=== PATIENT | female | born 1980 | race American Indian/Alaskan Native ===

== ENCOUNTER 2018-02-05 07:18 | Inpatient (IN) | payer MEDICAID ==
[2018-02-05] MEDS ORDERED: BRETHINE SUB-Q PRN (08:00)
[2018-02-05] MEDS ORDERED: XYLOCAINE 2% INFILTRATI NR (08:00)
[2018-02-05] MEDS ORDERED: ZOFRAN IV PRN (08:00)
[2018-02-05] MEDS ORDERED: MINERAL OIL PO PRN (08:00)
[2018-02-05] MEDS ORDERED: SUBLIMAZE IV PRN (08:00)
[2018-02-05] MEDS ORDERED: PITOCin/NS 20 UNIT/1000ML DRIP 20 UNITS/1,000 ML BAG IV SCH (08:00)
[2018-02-05] MEDS ORDERED: BRETHINE IVP PRN (08:00)
[2018-02-05] MEDS ORDERED: XYLOCAINE MPF 2% INFILTRATI NR (08:00)
--- NOTE | 2018-02-05 08:08 | Ultrasound Report ---
ULTRASOUND OB LIMITED History: rupture of membranes Technique: Transabdominal ultrasound with Doppler interrogation. Gestation: Single Position: Cephalic Amniotic Fluid: Decreased ROBERT = 3.7 cm Heart Rate: 145 BPM
--- NOTE | 2018-02-05 08:11 | History and Physical Report ---
History of Present Illness Date of examination: 02/05/18 (pt presents with PPROM @ 0630 this AM) Date of admission: 02/05/18 07:21 History of present illness: Past History : 8 Term Births: 1 Premature Births: 6 Living Children: 7 Para: 7 Mult. Births: 0 Prev : 0 Aborta: 0 Elect. Ab: 0 Spont. Ab: 0 Ectopics: 0 # 1 Delivery date: 05/27/1996 Weeks Gestation: 35 labor: yes Delivery type: Hours of labor: 6 Anesthesia type: epidural Delivery location: [facility] Sex: Male weight: [id number] Name: Dannie # 2 Delivery date: 07/21/1997 Weeks Gestation: ?32 labor: yes Delivery type: Hours of labor: 5 Anesthesia type: none Delivery location: [facility] Sex: Male weight: 5lbs 0oz Name: Duke # 3 Delivery date: 10/26/1998 Weeks Gestation: 36 labor: yes Delivery type: Hours of labor: 10 Anesthesia type: epidural Delivery location: [facility] Infant Sex: Male weight: 6lbs 1oz Name: Tai Comments: None # 4 Delivery date: 07/11/2003 Weeks Gestation: 33 labor: yes Delivery type: Hours of labor: 6 Anesthesia type: IV Delivery location: [facility] Sex: Male weight: [id number] Name: Valentin # 5 Delivery date: 03/12/2005 Weeks Gestation: 35 Delivery type: Hours of labor: 9 Anesthesia type: IV Delivery location: [facility] Infant Sex: Male weight: 5lbs 13oz Name: Jose # 6 Delivery date: 12/22/2009 Weeks Gestation: 37 labor: no Delivery type: Hours of labor: 5 Anesthesia type: epidural Delivery location: [facility] Infant Sex: Female weight: 6-3 Name: Lilliana Comments: HTN # 7 Delivery date: 12/29/2015 Weeks Gestation: 36 labor: yes Delivery type: Hours of labor: 5 Anesthesia type: epidural Delivery location: [place] Sex: Female weight: 5-8 Name: Kenzie Past Medical History: Asthma Hypothyroidism (2009) Umbilical hernia TIA (04/2017) Past Surgical History: Reviewed history from 05/16/2009 and no changes required: Negative Past Surgical History Family History Summary: Mother (biol.) - Has Family History of Diabetes - Entered On: 07/08/2017 Mother (biol.) - Has Family History of CVA or Stroke - Entered On: 07/08/2017 Mother (biol.) - Has Family History of Coronary Heart Disease - Entered On: 2017 General Comments - FH: Family History Breast Cancer Family History of Hypertension No Family History of Cervical Cancer No Family History of Colon Cancer No Family History of DVT/PE on OCP Social History: none Patient is Risk Factors: Smoked Tobacco Use: Never smoker Drug use: no Alcohol use: no Past History - Obstetrical History Expected Date of Delivery: 03/07/18 Actual Gestation: 35 Week(s) 5 Day(s) : 8 Para: 7 Hx # Term Pregnancies: 1 Number of Pregnancies: 6 Spontaneous Abortions: 0 Induced : 0 Number of Living Children: 7 Medications and Allergies Allergies Allergy/AdvReac Type Severity Reaction Status Date / Time aspirin Allergy Itching Verified 01/22/18 17:39 latex Allergy Rash Verified 01/22/18 17:39 Home Medications Medication Instructions Recorded Confirmed Last Taken Type Albuterol Sulfate [Ventolin Hfa] 2 puff INHALATION PRN 01/22/18 02/05/18 16:00 History Budesonide [Pulmicort Flexhaler] 1 inhalation IH PRN 01/22/18 02/05/18 02/04/18 16:00 History Labetalol HCl 400 mg PO TID 01/22/18 02/05/18 02/05/18 06:00 History Levothyroxine [Synthroid] 150 mcg PO QAM 01/22/18 02/05/18 02/05/18 05:00 History Vit-Fe Fumar-FA [ 1 tab PO QDAY 01/22/18 02/05/18 02/04/18 14: 00 History Vitamin] Active Meds: Active Medications Ephedrine Sulfate (Ephedrine Sulfate) 10 mg IV Q2M PRN PRN Reason: Hypotension Fentanyl (Sublimaze) 100 mcg IV Q2H PRN PRN Reason: Labor Pain Ampicillin Sodium (Polycillin/Ns 2 Gm/100 Ml) 2 gm in 100 mls @ 100 mls/hr IV ONCE ONE; Protocol Stop: 02/05/18 09:29 Ampicillin Sodium (Ampicillin/Ns 1 Gm/50 Ml) 1 gm in 50 mls @ 100 mls/hr IV Q4H LEXA; Protocol Lactated Ringer's (Lactated Ringers) 1,000 mls @ 125 mls/hr IV DIRECT LEXA Oxytocin/Sodium Chloride (Pitocin/Ns 20 Unit/1000ml Drip) 20 units in 1,000 mls @ 125 mls/hr IV DIRECT LEXA Magnesium Sulfate (Magnesium Sulfate 40gm/1000ml) 40 gm in 1,000 mls @ 50 mls/ hr IV DIRECT LEXA Magnesium Sulfate (Magnesium Sulfate 4gm/100ml) 4 gm in 100 mls @ 300 mls/hr IV ONCE ONE Stop: 02/05/18 08:28 Oxytocin/Sodium Chloride (Pitocin/Ns 30 Unit/500ml) 30 units in 500 mls @ 4 mls /hr IV Q30MIN LEXA; Protocol Lidocaine HCl (Xylocaine Mpf 2%) 5 ml INFILTRATI ONCE NR Stop: 02/06/18 07:59 Mineral Oil (Mineral Oil) 30 ml PO QHS PRN PRN Reason: Constipation Ondansetron HCl (Zofran) 4 mg IV Q8H PRN PRN Reason: Nausea And Vomiting Terbutaline Sulfate (Brethine) 0.25 mg SUB-Q ONCE PRN PRN Reason: Hyperstimulation/Hypertonicity Terbutaline Sulfate (Brethine) 0.25 mg IVP ONCE PRN PRN Reason: Hyperstimulation/Hypertonicity - Vital Signs Vital signs: Vital Signs Temp Pulse Resp BP 98.5 F 106 H 20 185/110 02/05/18 07:34 02/05/18 07:34 02/05/18 07:34 02/05/18 07:34 Temp Pulse Resp BP Pulse Ox 98.5 F 94 H 20 194/93 96 02/05/18 07:34 02/05/18 08:11 02/05/18 07:34 02/05/18 08:07 02/05/18 08:11 - Physical Exam Breasts: Positive: deferred Cardiovascular: Regular rate, Normal S1, Normal S2 Lungs: Positive: Clear to auscultation, Normal air movement Abdomen: Positive: normal appearance, soft, normal bowel sounds. Negative: distention, tenderness Genitourinary (Female): Positive: normal external genitalia, normal perenium Vulva: both: normal Vagina: Positive: normal moisture. Negative: discharge Cervix: Negative: lesion, discharge Uterus: Positive: normal size, normal contour Adnexa: both: normal Anus/Rectum: Positive: normal perianal skin, heme negative. Negative: rectal mass, hemorrhoids Extremities: Positive: edema Deep Tendon Reflex Grade: Normal +2 - Obstetrical FHR: category 1 Uterine Contraction Monitor Mode: External Cervical Dilatation: 2.5 Cervical Effacement Percentage: 60 station: -2 Uterine Contraction Pattern: Irregular Uterine Tone Measurement Phase: Resting Uterine Contraction Intensity: Mild Results Result Diagrams: 02/05/18 07:55 02/05/18 07:55 All other labs normal. HBsAg Screen Negative Negative *1 RPR Non Reactive Non Reactive *2 Rubella Antibodies, IgG 1.95 index Immune >0.99 *3 Non-immune <0.90 Equivocal 0.90 - 0.99 Immune >0.99 ABO Grouping O *4 Rh Factor Positive *5 Please note: Prior records for this patient's ABO / Rh type are not available for additional verification. Antibody Screen Negative Negative *6 WBC 9.3 x10E3/uL 3.4-10.8 *7 RBC 4.95 x10E6/uL 3.77-5.28 *8 Hemoglobin [L] 10.9 g/dL 11.1-15.9 *9 Hematocrit 35.2 % 34.0-46.6 *10 MCV [L] 71 fL 79-97 *11 MCH [L] 22.0 pg 26.6-33.0 *12 MCHC [L] 31.0 g/dL 31.5-35.7 *13 RDW [H] 18.8 % 12.3-15.4 *14 Platelets [H] 483 x10E3/uL 150-379 *15 Neutrophils 74 % Not Estab. *16 Lymphs 18 % Not Estab. *17 Monocytes 5 % Not Estab. *18 Eos 3 % Not Estab. *19 Basos 0 % Not Estab. *20 ! Immature Cells <No Reported Value> *21 Neutrophils (Absolute) 6.9 x10E3/uL 1.4-7.0 *22 Lymphs (Absolute) 1.6 x10E3/uL 0.7-3.1 *23 Monocytes(Absolute) 0.4 x10E3/uL 0.1-0.9 *24 Eos (Absolute) 0.3 x10E3/uL 0.0-0.4 *25 Baso (Absolute) 0.0 x10E3/uL 0.0-0.2 *26 ! Immature Granulocytes 0 % Not Estab. *27 ! Immature Grans (Abs) 0.0 x10E3/uL 0.0-0.1 *28 ! NRBC <No Reported Value> *29 Hematology Comments: <No Reported Value> *30 Tests: (2) Cystic Fibrosis Profile (235811) ! CF, Screen Comment: *31 RESULTS: Negative for 32 mutations analyzed Tests: (3) HB Solu + Rflx Fra (583200) Hemoglobin (Hgb) Solubility Negative Negative *33 Tests: (4) Panel [id number] ([id number]) HIV Screen 4th Generation wRfx Non Reactive Non Reactive *34 Tests: (5) HCV Ab w/Rflx to Verification ([id number]) ! HCV Ab <0.1 s/co ratio 0.0-0.9 *35 Tests: (6) Comment: ([id number]) ! Comment: SPRCS *36 Non reactive HCV antibody screen is consistent with no HCV infection, unless recent infection is suspected or other evidence exists to indicate HCV infection. Tests: (7) Urine Culture, Routine ([id number]) Urine Culture, Routine [A] Final report *37 Tests: (8) Result ([id number]) ! Result 1 [A] "Result Below..." *38 RESULT: Enterococcus faecalis Assessment and Plan 37yo @ 35 weeks with PPROM Pt is chronic htn(Labetalol 400mg TID), hypothyroid(Synthroid 150mcg), obesity, AMA, asthma. Pt has been seen by [facility] this also. GBS unknown, received BMZ at a visit 01-22-18. MGSO4 started Ampicillin GBS unknown. NICU aware of pt's admission. consulted - Patient Problems (1) premature rupture of membranes (PPROM) with onset of labor within 24 hours of rupture in third trimester, antepartum Onset Date: ~02/05/18 Current Visit: Yes Status: Acute (2) Advanced maternal age (AMA) in Onset Date: ~02/05/18 Current Visit: Yes Status: Acute (3) Hypothyroidism Onset Date: ~02/05/18 Current Visit: Yes Status: Chronic Qualifiers: Hypothyroidism type: acquired Qualified Code(s): E03.9 - Hypothyroidism, unspecified Plan to address problem: Pt is taking Synthroid 150mcg po QD Ordered (4) Asthma Onset Date: ~02/05/18 Current Visit: Yes Status: Acute (5) Chronic hypertension during Onset Date: ~02/05/18 Current Visit: Yes Status: Chronic (6) BMI 60.0-69.9, adult Onset Date: ~02/05/18 Current Visit: Yes Status: Chronic
[2018-02-05] MEDS ORDERED: MAGNESIUM SULFATE 40GM/1000ML 40 GM/1,000 ML BAG IV ONE (08:13)
[2018-02-05] MEDS ORDERED: POLYCILLIN/NS 2 GM/100 ML 2 GM/100 ML BAG IV ONE (08:30)
[2018-02-05 08:35] LABS: Alanine Aminotransferase 27 units/L (7-56); Uric Acid 5.4 mg/dL (3.5-7.6)
[2018-02-05 08:38] LABS: Hematocrit 33.7 % (30.3-42.9); Hemoglobin 10.7 gm/dl (10.1-14.3); Mean Corpuscular HGB Conc 32 % (30-34); Mean Corpuscular Hemoglobin 24 pg (28-32); Mean Corpuscular Volume 75 fl (79-97); Platelet Count 366 K/mm3 (140-440); Red Blood Count 4.47 M/mm3 (3.65-5.03); Red Cell Distribution Width 16.3 % (13.2-15.2)
[2018-02-05] MEDS: LACTATED RINGERS 1,000 ML IV SCH ×3 (08:38→16:58)
[2018-02-05] MEDS ORDERED: APRESOLINE IV PRN (08:59)
--- NOTE | 2018-02-05 08:59 | Event Note ---
Date: 02/05/18 (Internals placed) ISE/IUPC placed SVE 3,80,-2 Pt requests epidural Bolus started
[2018-02-05] MEDS ORDERED: MAGNESIUM SULFATE 4GM/100ML 4 GM/100 ML BAG IV NR (09:00)
[2018-02-05] MEDS ORDERED: MAGNESIUM SULFATE 40GM/1000ML 40 GM/1,000 ML BAG IV SCH (09:00)
[2018-02-05] MEDS ORDERED: CELESTONE SOLUSPAN IM SCH (10:00)
[2018-02-05] MEDS ORDERED: NARCAN 2 MG/2 ML IV PRN (10:52)
--- NOTE | 2018-02-05 10:52 | Anesthesia Consultation ---
Anesthesia Consult and Med Hx Date of service: 02/05/18 - Airway Anesthetic Teeth Evaluation: Good ROM Head & Neck: Adequate Mental/Hyoid Distance: Adequate Mallampati Class: Class II Intubation Access Assessment: Probably Good - Pre-Operative Health Status ASA Pre-Surgery Classification: ASA3 Proposed Anesthetic Plan: Epidural, Spinal - Pulmonary Hx Asthma: Yes (LAST ATTACK 1 WEEK AGO, CARRIES AN INHALER AND NEBULIZER) COPD: No Hx Pneumonia: No - Cardiovascular System Hx Hypertension: Yes (2015) - Central Nervous System Hx Seizures: No Hx Psychiatric Problems: No - Endocrine Hx Renal Disease: No Hx End Stage Renal Disease: No Hx Hypothyroidism: Yes (TAKES SYNTHROID) Hx Hyperthyroidism: No - Hematic Hx Anemia: Yes (WAS TAKING FE ALONE BUT NOW TAKES FR IN PRENATALS) Hx Sickle Cell Disease: No - Other Systems Hx Alcohol Use: No Hx Obesity: Yes (BMI 63.8)
[2018-02-05] MEDS ORDERED: fentaNYL-BUPIV 2 MCG/ML-0.125% 200 MCG/100 ML BAG EPIDURAL SCH (11:00)
[2018-02-05 12:07] LABS: Bilirubin,Urine NEG (Negative); Blood,Urine SM (Negative); Color,Urine Straw (Yellow); Protein,Urine <15 mg/dL mg/dL (Negative); Urobilinogen,Urine < 2.0 mg/dL (<2.0); WBC,Urine < 1.0 /HPF (0.0-6.0)
[2018-02-05] MEDS: PITOCin/NS 30 UNIT/500ML 30 UNITS/500 ML BAG IV SCH ×13 (12:42→23:11)
[2018-02-05] MEDS: AMPICILLIN/NS 1 GM/50 ML 1 GM/50 ML BAG IV SCH ×3 (12:47→21:06)
[2018-02-05] MEDS ORDERED: PEPCID IV SCH (14:00)
[2018-02-05] MEDS ORDERED: NORMODYNE PO SCH (14:00)
--- NOTE | 2018-02-05 16:46 | Progress Note ---
Assessment and Plan Called to room by RN to reports variables and that ISE had stopped working SVE 4 -5,90,-1 ISE reapplied Will restart pitocin Continue to monitor closely Re-eval as necessary - Patient Problems (1) premature rupture of membranes (PPROM) with onset of labor within 24 hours of rupture in third trimester, antepartum Onset Date: ~02/05/18 Current Visit: Yes Status: Acute (2) Advanced maternal age (AMA) in Onset Date: ~02/05/18 Current Visit: Yes Status: Acute (3) Hypothyroidism Onset Date: ~02/05/18 Current Visit: Yes Status: Chronic Qualifiers: Hypothyroidism type: acquired Qualified Code(s): E03.9 - Hypothyroidism, unspecified (4) Asthma Onset Date: ~02/05/18 Current Visit: Yes Status: Acute (5) Chronic hypertension during Onset Date: ~02/05/18 Current Visit: Yes Status: Chronic (6) BMI 60.0-69.9, adult Onset Date: ~02/05/18 Current Visit: Yes Status: Chronic Subjective - Subjective Date of service: 02/05/18 (called urgently to room FHT not recording) Interval history: Past History : 8 Term Births: 1 Premature Births: 6 Living Children: 7 Para: 7 Mult. Births: 0 Prev : 0 Aborta: 0 Elect. Ab: 0 Spont. Ab: 0 Ectopics: 0 # 1 Delivery date: 05/27/1996 Weeks Gestation: 35 labor: yes Delivery type: Hours of labor: 6 Anesthesia type: epidural Delivery location: [facility] Infant Sex: Male weight: [id number] Name: Dannie # 2 Delivery date: 07/21/1997 Weeks Gestation: ?32 labor: yes Delivery type: Hours of labor: 5 Anesthesia type: none Delivery location: [facility] Sex: Male weight: 5lbs 0oz Name: Duke # 3 Delivery date: 10/26/1998 Weeks Gestation: 36 labor: yes Delivery type: Hours of labor: 10 Anesthesia type: epidural Delivery location: [facility] Sex: Male weight: 6lbs 1oz Name: Tai Comments: None # 4 Delivery date: 07/11/2003 Weeks Gestation: 33 labor: yes Delivery type: Hours of labor: 6 Anesthesia type: IV Delivery location: [facility] Infant Sex: Male weight: [id number] Name: Valentin # 5 Delivery date: 03/12/2005 Weeks Gestation: 35 Delivery type: Hours of labor: 9 Anesthesia type: IV Delivery location: [facility] Sex: Male weight: 5lbs 13oz Name: Jose # 6 Delivery date: 12/22/2009 Weeks Gestation: 37 labor: no Delivery type: Hours of labor: 5 Anesthesia type: epidural Delivery location: [facility] Sex: Female weight: 6-3 Name: GerardoDiogo Comments: HTN # 7 Delivery date: 12/29/2015 Weeks Gestation: 36 labor: yes Delivery type: Hours of labor: 5 Anesthesia type: epidural Delivery location: [place] Sex: Female weight: 5-8 Name: Kenzie Past Medical History: Asthma Hypothyroidism (2009) Umbilical hernia TIA (04/2017) Past Surgical History: Reviewed history from 05/16/2009 and no changes required: Negative Past Surgical History Family History Summary: Mother (biol.) - Has Family History of Diabetes - Entered On: 07/08/2017 Mother (biol.) - Has Family History of CVA or Stroke - Entered On: 07/08/2017 Mother (biol.) - Has Family History of Coronary Heart Disease - Entered On: 2017 General Comments - FH: Family History Breast Cancer Family History of Hypertension No Family History of Cervical Cancer No Family History of Colon Cancer No Family History of DVT/PE on OCP Social History: none Patient is Risk Factors: Smoked Tobacco Use: Never smoker Drug use: no Alcohol use: no Dietary Counseling: pn yes Patient reports: movement normal Objective - Vital Signs Vital Signs: Vital Signs - 12hr 02/05/18 02/05/18 02/05/18 07:34 07:53 08:01 Temperature 98.5 F Pulse Rate 106 H 94 H 98 H Respiratory 20 18 Rate Blood Pressure 185/110 174/86 Blood Pressure 185/110 174/86 [Right] O2 Sat by Pulse 96 Oximetry 02/05/18 02/05/18 02/05/18 08:06 08:07 08:11 Temperature Pulse Rate 115 H 93 H 94 H Respiratory 18 Rate Blood Pressure 194/93 Blood Pressure 194/93 [Right] O2 Sat by Pulse 94 94 96 Oximetry 02/05/18 02/05/18 02/05/18 08:16 08:21 08:36 Temperature Pulse Rate 103 H 93 H Respiratory 18 Rate Blood Pressure 176/82 174/96 Blood Pressure 176/82 [Right] O2 Sat by Pulse 96 96 Oximetry 02/05/18 02/05/18 02/05/18 08:37 08:47 08:51 Temperature Pulse Rate 93 H 98 H Respiratory Rate Blood Pressure 180/100 191/102 Blood Pressure 174/96 180/100 [Right] O2 Sat by Pulse Oximetry 02/05/18 02/05/18 02/05/18 08:53 08:54 08:55 Temperature Pulse Rate 98 H 97 H 89 Respiratory 20 Rate Blood Pressure Blood Pressure 191/102 [Right] O2 Sat by Pulse 95 95 93 Oximetry 02/05/18 02/05/18 02/05/18 08:59 09:00 09:01 Temperature Pulse Rate 98 H 93 H 93 H Respiratory Rate Blood Pressure 160/85 Blood Pressure 160/85 [Right] O2 Sat by Pulse 96 91 Oximetry 02/05/18 02/05/18 02/05/18 09:04 09:05 09:06 Temperature Pulse Rate 115 H 96 H 96 H Respiratory Rate Blood Pressure 188/90 Blood Pressure 188/90 [Right] O2 Sat by Pulse 96 94 Oximetry 02/05/18 02/05/18 02/05/18 09:09 09:10 09:12 Temperature Pulse Rate 104 H 100 H 100 H Respiratory Rate Blood Pressure 148/74 Blood Pressure 148/74 [Right] O2 Sat by Pulse 95 94 Oximetry 02/05/18 02/05/18 02/05/18 09:13 09:14 09:15 Temperature Pulse Rate 101 H 104 H 104 H Respiratory Rate Blood Pressure 150/79 Blood Pressure [Right] O2 Sat by Pulse 94 94 Oximetry 02/05/18 02/05/18 02/05/18 09:19 09:20 09:24 Temperature Pulse Rate 106 H 105 H 109 H Respiratory Rate Blood Pressure 148/78 Blood Pressure [Right] O2 Sat by Pulse 94 95 Oximetry 02/05/18 02/05/18 02/05/18 09:25 09:28 09:30 Temperature Pulse Rate 102 H 101 H 101 H Respiratory Rate Blood Pressure 143/72 143/74 Blood Pressure [Right] O2 Sat by Pulse 94 94 Oximetry 02/05/18 02/05/18 02/05/18 09:31 09:34 09:35 Temperature Pulse Rate 103 H 101 H 101 H Respiratory Rate Blood Pressure 147/77 Blood Pressure [Right] O2 Sat by Pulse 94 95 Oximetry 02/05/18 02/05/18 02/05/18 09:37 09:39 09:40 Temperature Pulse Rate 100 H 101 H 97 H Respiratory Rate Blood Pressure 142/79 Blood Pressure [Right] O2 Sat by Pulse 94 95 Oximetry 02/05/18 02/05/18 02/05/18 09:44 09:45 09:49 Temperature Pulse Rate 104 H 97 H 98 H Respiratory Rate Blood Pressure 137/74 Blood Pressure [Right] O2 Sat by Pulse 96 94 94 Oximetry 02/05/18 02/05/18 02/05/18 09:50 09:51 09:54 Temperature Pulse Rate 93 H 105 H 105 H Respiratory Rate Blood Pressure 142/69 Blood Pressure [Right] O2 Sat by Pulse 94 96 Oximetry 02/05/18 02/05/18 02/05/18 09:55 09:56 09:59 Temperature Pulse Rate 100 H 103 H 99 H Respiratory Rate Blood Pressure 137/72 Blood Pressure [Right] O2 Sat by Pulse 93 95 Oximetry 02/05/18 02/05/18 02/05/18 10:00 10:04 10:09 Temperature Pulse Rate 96 H 99 H 108 H Respiratory Rate Blood Pressure 140/80 Blood Pressure [Right] O2 Sat by Pulse 95 93 Oximetry 02/05/18 02/05/18 02/05/18 10:13 10:15 10:19 Temperature Pulse Rate 105 H 100 H 99 H Respiratory Rate Blood Pressure 144/82 Blood Pressure [Right] O2 Sat by Pulse 96 96 Oximetry 02/05/18 02/05/18 02/05/18 10:24 10:29 10:30 Temperature Pulse Rate 102 H 102 H 104 H Respiratory Rate Blood Pressure 149/84 Blood Pressure [Right] O2 Sat by Pulse 96 97 Oximetry 02/05/18 02/05/18 02/05/18 10:33 10:38 10:41 Temperature Pulse Rate 109 H 103 H 110 H Respiratory Rate Blood Pressure Blood Pressure [Right] O2 Sat by Pulse 97 95 94 Oximetry 10/04/18 10/04/18 10/04/18 10:43 10:45 10:48 Temperature Pulse Rate 105 H 106 H 102 H Respiratory Rate Blood Pressure 149/95 Blood Pressure [Right] O2 Sat by Pulse 97 96 Oximetry 02/05/18 02/05/18 02/05/18 10:51 10:53 10:56 Temperature Pulse Rate 102 H 109 H 112 H Respiratory Rate Blood Pressure Blood Pressure [Right] O2 Sat by Pulse 91 96 89 Oximetry 02/05/18 02/05/18 02/05/18 10:58 10:59 11:00 Temperature 97.8 F Pulse Rate 104 H 105 H 101 H Respiratory 18 Rate Blood Pressure 153/96 159/91 Blood Pressure 159/91 [Right] O2 Sat by Pulse 98 97 Oximetry 02/05/18 02/05/18 02/05/18 11:03 11:05 11:08 Temperature Pulse Rate 112 H 109 H 113 H Respiratory Rate Blood Pressure Blood Pressure [Right] O2 Sat by Pulse 97 94 95 Oximetry 02/05/18 02/05/18 02/05/18 11:13 11:14 11:17 Temperature Pulse Rate 108 H 113 H 101 H Respiratory Rate Blood Pressure 184/101 Blood Pressure [Right] O2 Sat by Pulse 94 94 Oximetry 02/05/18 02/05/18 02/05/18 11:18 11:20 11:22 Temperature Pulse Rate 113 H 111 H 112 H Respiratory Rate Blood Pressure 147/71 163/77 153/64 Blood Pressure [Right] O2 Sat by Pulse 96 Oximetry 02/05/18 02/05/18 02/05/18 11:23 11:24 11:26 Temperature Pulse Rate 129 H 117 H 109 H Respiratory Rate Blood Pressure 143/65 142/69 Blood Pressure [Right] O2 Sat by Pulse 98 Oximetry 02/05/18 02/05/18 02/05/18 11:28 11:30 11:32 Temperature Pulse Rate 112 H 115 H 110 H Respiratory Rate Blood Pressure 125/60 129/62 145/74 Blood Pressure [Right] O2 Sat by Pulse 96 Oximetry 02/05/18 02/05/18 02/05/18 11:33 11:34 11:36 Temperature Pulse Rate 120 H 113 H 110 H Respiratory Rate Blood Pressure 137/65 138/69 Blood Pressure [Right] O2 Sat by Pulse 95 Oximetry 02/05/18 02/05/18 02/05/18 11:38 11:39 11:40 Temperature Pulse Rate 107 H 107 H 104 H Respiratory Rate Blood Pressure 133/69 132/74 Blood Pressure [Right] O2 Sat by Pulse 94 93 Oximetry 02/05/18 02/05/18 02/05/18 11:42 11:43 11:44 Temperature Pulse Rate 100 H 107 H 96 H Respiratory Rate Blood Pressure 135/79 143/75 Blood Pressure [Right] O2 Sat by Pulse 96 Oximetry 02/05/18 02/05/18 02/05/18 11:45 11:46 11:48 Temperature Pulse Rate 102 H 107 H 101 H Respiratory Rate Blood Pressure 146/80 Blood Pressure [Right] O2 Sat by Pulse 94 97 Oximetry 02/05/18 02/05/18 02/05/18 11:52 11:53 11:57 Temperature Pulse Rate 103 H 106 H 100 H Respiratory Rate Blood Pressure 141/78 142/77 Blood Pressure [Right] O2 Sat by Pulse 94 97 Oximetry 02/05/18 02/05/18 02/05/18 11:58 12:02 12:03 Temperature Pulse Rate 102 H 104 H 95 H Respiratory Rate Blood Pressure 140/75 Blood Pressure [Right] O2 Sat by Pulse 98 96 Oximetry 02/05/18 02/05/18 02/05/18 12:07 12:08 12:12 Temperature Pulse Rate 104 H 100 H 105 H Respiratory Rate Blood Pressure 146/77 138/74 Blood Pressure [Right] O2 Sat by Pulse 99 Oximetry 02/05/18 02/05/18 02/05/18 12:13 12:17 12:18 Temperature Pulse Rate 106 H 101 H 96 H Respiratory Rate Blood Pressure 144/80 Blood Pressure [Right] O2 Sat by Pulse 99 99 Oximetry 02/05/18 02/05/18 02/05/18 12:22 12:23 12:27 Temperature Pulse Rate 97 H 102 H 97 H Respiratory Rate Blood Pressure 158/86 154/79 Blood Pressure [Right] O2 Sat by Pulse 99 Oximetry 02/05/18 02/05/18 02/05/18 12:28 12:32 12:33 Temperature Pulse Rate 100 H 99 H 106 H Respiratory Rate Blood Pressure 156/86 Blood Pressure [Right] O2 Sat by Pulse 99 100 Oximetry 02/05/18 02/05/18 02/05/18 12:34 12:37 12:38 Temperature Pulse Rate 113 H 108 H 100 H Respiratory Rate Blood Pressure 155/90 Blood Pressure [Right] O2 Sat by Pulse 91 98 Oximetry 02/05/18 02/05/18 02/05/18 12:42 12:43 12:47 Temperature Pulse Rate 91 H 98 H 102 H Respiratory Rate Blood Pressure 159/85 162/86 Blood Pressure [Right] O2 Sat by Pulse 99 Oximetry 02/05/18 02/05/18 02/05/18 12:48 12:52 12:53 Temperature Pulse Rate 104 H 100 H 103 H Respiratory Rate Blood Pressure 165/88 Blood Pressure [Right] O2 Sat by Pulse 100 99 Oximetry 02/05/18 02/05/18 02/05/18 12:57 12:58 13:01 Temperature Pulse Rate 100 H 102 H 96 H Respiratory Rate Blood Pressure 164/83 164/82 Blood Pressure [Right] O2 Sat by Pulse 98 Oximetry 02/05/18 02/05/18 02/05/18 13:03 13:06 13:08 Temperature Pulse Rate 100 H 99 H 98 H Respiratory Rate Blood Pressure 162/81 Blood Pressure [Right] O2 Sat by Pulse 99 99 Oximetry 02/05/18 02/05/18 02/05/18 13:13 13:16 13:18 Temperature Pulse Rate 96 H 97 H 95 H Respiratory Rate Blood Pressure 175/82 171/81 Blood Pressure [Right] O2 Sat by Pulse 99 100 Oximetry 02/05/18 02/05/18 02/05/18 13:23 13:28 13:32 Temperature Pulse Rate 99 H 100 H 96 H Respiratory Rate Blood Pressure 145/78 Blood Pressure [Right] O2 Sat by Pulse 100 99 Oximetry 02/05/18 02/05/18 02/05/18 13:33 13:38 13:43 Temperature Pulse Rate 102 H 102 H 98 H Respiratory Rate Blood Pressure Blood Pressure [Right] O2 Sat by Pulse 98 98 99 Oximetry 02/05/18 02/05/18 02/05/18 13:45 13:48 13:53 Temperature Pulse Rate 104 H 101 H 97 H Respiratory Rate Blood Pressure 141/75 Blood Pressure [Right] O2 Sat by Pulse 99 99 Oximetry 02/05/18 02/05/18 02/05/18 13:58 14:00 14:03 Temperature Pulse Rate 101 H 100 H 106 H Respiratory Rate Blood Pressure 160/81 Blood Pressure [Right] O2 Sat by Pulse 98 99 Oximetry 02/05/18 02/05/18 02/05/18 14:08 14:13 14:15 Temperature Pulse Rate 107 H 105 H 100 H Respiratory Rate Blood Pressure 159/87 Blood Pressure [Right] O2 Sat by Pulse 96 98 Oximetry 02/05/18 02/05/18 02/05/18 14:16 14:18 14:25 Temperature Pulse Rate 102 H 99 H 104 H Respiratory Rate Blood Pressure 159/87 Blood Pressure [Right] O2 Sat by Pulse 96 98 Oximetry 02/05/18 02/05/18 02/05/18 14:30 14:35 14:40 Temperature Pulse Rate 101 H 99 H 106 H Respiratory Rate Blood Pressure 155/82 Blood Pressure [Right] O2 Sat by Pulse 98 97 95 Oximetry 02/05/18 02/05/18 02/05/18 14:41 14:45 14:50 Temperature Pulse Rate 105 H 109 H 103 H Respiratory Rate Blood Pressure 159/87 Blood Pressure [Right] O2 Sat by Pulse 91 97 96 Oximetry 02/05/18 02/05/18 02/05/18 14:51 14:55 15:00 Temperature Pulse Rate 104 H 101 H 102 H Respiratory Rate Blood Pressure Blood Pressure [Right] O2 Sat by Pulse 84 96 96 Oximetry 02/05/18 02/05/18 02/05/18 15:01 15:05 15:08 Temperature Pulse Rate 102 H 103 H 95 H Respiratory Rate Blood Pressure 170/91 Blood Pressure [Right] O2 Sat by Pulse 95 94 Oximetry 02/05/18 02/05/18 02/05/18 15:10 15:13 15:15 Temperature Pulse Rate 102 H 91 H 101 H Respiratory Rate Blood Pressure Blood Pressure [Right] O2 Sat by Pulse 96 93 92 Oximetry 02/05/18 02/05/18 02/05/18 15:17 15:18 15:20 Temperature Pulse Rate 101 H 100 H 95 H Respiratory Rate Blood Pressure 142/86 Blood Pressure [Right] O2 Sat by Pulse 94 93 Oximetry 02/05/18 02/05/18 02/05/18 15:25 15:28 15:30 Temperature Pulse Rate 89 97 H 99 H Respiratory Rate Blood Pressure Blood Pressure [Right] O2 Sat by Pulse 92 94 95 Oximetry 02/05/18 02/05/18 02/05/18 15:31 15:33 15:35 Temperature Pulse Rate 99 H 98 H 97 H Respiratory Rate Blood Pressure 167/94 Blood Pressure [Right] O2 Sat by Pulse 94 95 Oximetry 02/05/18 02/05/18 02/05/18 15:40 15:45 15:50 Temperature Pulse Rate 90 88 95 H Respiratory Rate Blood Pressure 153/82 Blood Pressure [Right] O2 Sat by Pulse 94 93 95 Oximetry 02/05/18 02/05/18 02/05/18 15:55 16:00 16:01 Temperature 97.9 F Pulse Rate 93 H 93 H 91 H Respiratory 20 Rate Blood Pressure 135/71 Blood Pressure 135/71 [Right] O2 Sat by Pulse 94 94 Oximetry 02/05/18 02/05/18 02/05/18 16:05 16:10 16:12 Temperature Pulse Rate 85 89 81 Respiratory Rate Blood Pressure Blood Pressure [Right] O2 Sat by Pulse 93 93 94 Oximetry 02/05/18 02/05/18 02/05/18 16:15 16:16 16:20 Temperature Pulse Rate 85 84 85 Respiratory Rate Blood Pressure 113/59 Blood Pressure [Right] O2 Sat by Pulse 90 96 Oximetry 02/05/18 02/05/18 02/05/18 16:31 16:35 16:40 Temperature Pulse Rate 90 98 H 93 H Respiratory Rate Blood Pressure 136/71 Blood Pressure [Right] O2 Sat by Pulse 100 100 Oximetry - Exam Breasts: deferred Cardiovascular: Regular rate Lungs: Normal air movement Abdomen: Present: normal appearance, soft. Absent: distention, tenderness Uterus: Present: normal FHR: auscultation normal Uterine Contraction Monitor Mode: Internal Cervical Dilatation: 4.5 (ISE reapplied) Cervical Effacement Percentage: 90 station: -1 Uterine Contraction Pattern: Regular Uterine Tone Measurement Phase: Resting Uterine Contraction Intensity: Moderate Extremities: edema Deep Tendon Reflex Grade: Normal +2 - Labs Labs: Abnormal Labs 02/05/18 02/05/18 07:55 07:55 WBC 13.0 H MCV 75 L MCH 24 L RDW 16.3 H Creatinine 0.4 L Lactate Dehydrogenase 203 H Laboratory Results - last 24 hr 02/05/18 02/05/18 02/05/18 07:55 07:55 07:55 WBC 13.0 H RBC 4.47 Hgb 10.7 Hct 33.7 MCV 75 L MCH 24 L MCHC 32 RDW 16.3 H Plt Count 366 Creatinine Estimated GFR Uric Acid AST ALT Lactate Dehydrogenase Urine Color Urine Turbidity Urine pH Ur Specific [place] Urine Protein Urine Glucose (UA) Urine Ketones Urine Blood Urine Nitrite Urine Bilirubin Urine Urobilinogen Ur Leukocyte Esterase Urine WBC (Auto) Urine RBC (Auto) U Epithel Cells (Auto) RPR Nonreactive Blood Type O POSITIVE Antibody Screen Negative 02/05/18 02/05/18 07:55 11:40 WBC RBC Hgb Hct MCV MCH MCHC RDW Plt Count Creatinine 0.4 L Estimated GFR > 60 Uric Acid 5.4 AST 23 ALT 27 Lactate Dehydrogenase 203 H Urine Color Straw Urine Turbidity Clear Urine pH 6.0 Ur Specific [place] 1.005 Urine Protein <15 mg/dl Urine Glucose (UA) Neg Urine Ketones Tr Urine Blood Sm Urine Nitrite Neg Urine Bilirubin Neg Urine Urobilinogen < 2.0 Ur Leukocyte Esterase Neg Urine WBC (Auto) < 1.0 Urine RBC (Auto) 2.0 U Epithel Cells (Auto) 1.0 RPR Blood Type Antibody Screen
--- NOTE | 2018-02-05 22:47 | Progress Note ---
Assessment and Plan Anticipate delivery - Patient Problems (1) premature rupture of membranes (PPROM) with onset of labor within 24 hours of rupture in third trimester, antepartum Onset Date: ~02/05/18 Current Visit: Yes Status: Acute (2) Advanced maternal age (AMA) in Onset Date: ~02/05/18 Current Visit: Yes Status: Acute (3) Hypothyroidism Onset Date: ~02/05/18 Current Visit: Yes Status: Chronic Qualifiers: Hypothyroidism type: acquired Qualified Code(s): E03.9 - Hypothyroidism, unspecified (4) Asthma Onset Date: ~02/05/18 Current Visit: Yes Status: Acute (5) Chronic hypertension during Onset Date: ~02/05/18 Current Visit: Yes Status: Chronic (6) BMI 60.0-69.9, adult Onset Date: ~02/05/18 Current Visit: Yes Status: Chronic Subjective - Subjective Date of service: 02/05/18 (pt more comfortable Still feels some pressure) Interval history: Past History : 8 Term Births: 1 Premature Births: 6 Living Children: 7 Para: 7 Mult. Births: 0 Prev : 0 Aborta: 0 Elect. Ab: 0 Spont. Ab: 0 Ectopics: 0 # 1 Delivery date: 05/27/1996 Weeks Gestation: 35 labor: yes Delivery type: Hours of labor: 6 Anesthesia type: epidural Delivery location: [facility] Sex: Male weight: [id number] Name: Dannie # 2 Delivery date: 07/21/1997 Weeks Gestation: ?32 labor: yes Delivery type: Hours of labor: 5 Anesthesia type: none Delivery location: [facility] Infant Sex: Male weight: 5lbs 0oz Name: Duke # 3 Delivery date: 10/26/1998 Weeks Gestation: 36 labor: yes Delivery type: Hours of labor: 10 Anesthesia type: epidural Delivery location: [facility] Sex: Male weight: 6lbs 1oz Name: Tai Comments: Rogelio # 4 Delivery date: 07/11/2003 Weeks Gestation: 33 labor: yes Delivery type: Hours of labor: 6 Anesthesia type: IV Delivery location: [facility] Infant Sex: Male weight: [id number] Name: Valentin # 5 Delivery date: 03/12/2005 Weeks Gestation: 35 Delivery type: Hours of labor: 9 Anesthesia type: IV Delivery location: [facility] Infant Sex: Male weight: 5lbs 13oz Name: Jose # 6 Delivery date: 12/22/2009 Weeks Gestation: 37 labor: no Delivery type: Hours of labor: 5 Anesthesia type: epidural Delivery location: [facility] Infant Sex: Female weight: 6-3 Name: Lilliana Comments: HTN # 7 Delivery date: 12/29/2015 Weeks Gestation: 36 labor: yes Delivery type: Hours of labor: 5 Anesthesia type: epidural Delivery location: [facility] Sex: Female weight: 5-8 Name: Kenzie Past Medical History: Asthma Hypothyroidism (2009) Umbilical hernia TIA (04/2017) Past Surgical History: Reviewed history from 05/16/2009 and no changes required: Negative Past Surgical History Family History Summary: Mother (biol.) - Has Family History of Diabetes - Entered On: 07/08/2017 Mother (biol.) - Has Family History of CVA or Stroke - Entered On: 07/08/2017 Mother (biol.) - Has Family History of Coronary Heart Disease - Entered On: 2017 General Comments - FH: Family History Breast Cancer Family History of Hypertension No Family History of Cervical Cancer No Family History of Colon Cancer No Family History of DVT/PE on OCP Social History: none Patient is Risk Factors: Smoked Tobacco Use: Never smoker Drug use: no Alcohol use: no Patient reports: movement normal Objective - Vital Signs Vital Signs: Vital Signs - 12hr 02/05/18 02/05/18 02/05/18 10:48 10:51 10:53 Temperature Pulse Rate 102 H 102 H 109 H Respiratory Rate Blood Pressure Blood Pressure [Right] O2 Sat by Pulse 96 91 96 Oximetry 02/05/18 02/05/18 02/05/18 10:56 10:58 10:59 Temperature 97.8 F Pulse Rate 112 H 104 H 105 H Respiratory 18 Rate Blood Pressure 153/96 Blood Pressure 159/91 [Right] O2 Sat by Pulse 89 98 97 Oximetry 02/05/18 02/05/18 02/05/18 11:00 11:03 11:05 Temperature Pulse Rate 101 H 112 H 109 H Respiratory Rate Blood Pressure 159/91 Blood Pressure [Right] O2 Sat by Pulse 97 94 Oximetry 02/05/18 02/05/18 02/05/18 11:08 11:13 11:14 Temperature Pulse Rate 113 H 108 H 113 H Respiratory Rate Blood Pressure Blood Pressure [Right] O2 Sat by Pulse 95 94 94 Oximetry 02/05/18 02/05/18 02/05/18 11:17 11:18 11:20 Temperature Pulse Rate 101 H 113 H 111 H Respiratory Rate Blood Pressure 184/101 147/71 163/77 Blood Pressure [Right] O2 Sat by Pulse 96 Oximetry 02/05/18 02/05/18 02/05/18 11:22 11:23 11:24 Temperature Pulse Rate 112 H 129 H 117 H Respiratory Rate Blood Pressure 153/64 143/65 Blood Pressure [Right] O2 Sat by Pulse 98 Oximetry 02/05/18 02/05/18 02/05/18 11:26 11:28 11:30 Temperature Pulse Rate 109 H 112 H 115 H Respiratory Rate Blood Pressure 142/69 125/60 129/62 Blood Pressure [Right] O2 Sat by Pulse 96 Oximetry 02/05/18 02/05/18 02/05/18 11:32 11:33 11:34 Temperature Pulse Rate 110 H 120 H 113 H Respiratory Rate Blood Pressure 145/74 137/65 Blood Pressure [Right] O2 Sat by Pulse 95 Oximetry 02/05/18 02/05/18 02/05/18 11:36 11:38 11:39 Temperature Pulse Rate 110 H 107 H 107 H Respiratory Rate Blood Pressure 138/69 133/69 Blood Pressure [Right] O2 Sat by Pulse 94 93 Oximetry 02/05/18 02/05/18 02/05/18 11:40 11:42 11:43 Temperature Pulse Rate 104 H 100 H 107 H Respiratory Rate Blood Pressure 132/74 135/79 Blood Pressure [Right] O2 Sat by Pulse 96 Oximetry 02/05/18 02/05/18 02/05/18 11:44 11:45 11:46 Temperature Pulse Rate 96 H 102 H 107 H Respiratory Rate Blood Pressure 143/75 146/80 Blood Pressure [Right] O2 Sat by Pulse 94 Oximetry 02/05/18 02/05/18 02/05/18 11:48 11:52 11:53 Temperature Pulse Rate 101 H 103 H 106 H Respiratory Rate Blood Pressure 141/78 Blood Pressure [Right] O2 Sat by Pulse 97 94 97 Oximetry 02/05/18 02/05/18 02/05/18 11:57 11:58 12:02 Temperature Pulse Rate 100 H 102 H 104 H Respiratory Rate Blood Pressure 142/77 140/75 Blood Pressure [Right] O2 Sat by Pulse 98 Oximetry 02/05/18 02/05/18 02/05/18 12:03 12:07 12:08 Temperature Pulse Rate 95 H 104 H 100 H Respiratory Rate Blood Pressure 146/77 Blood Pressure [Right] O2 Sat by Pulse 96 99 Oximetry 02/05/18 02/05/18 02/05/18 12:12 12:13 12:17 Temperature Pulse Rate 105 H 106 H 101 H Respiratory Rate Blood Pressure 138/74 144/80 Blood Pressure [Right] O2 Sat by Pulse 99 Oximetry 02/05/18 02/05/18 02/05/18 12:18 12:22 12:23 Temperature Pulse Rate 96 H 97 H 102 H Respiratory Rate Blood Pressure 158/86 Blood Pressure [Right] O2 Sat by Pulse 99 99 Oximetry 02/05/18 02/05/18 02/05/18 12:27 12:28 12:32 Temperature Pulse Rate 97 H 100 H 99 H Respiratory Rate Blood Pressure 154/79 156/86 Blood Pressure [Right] O2 Sat by Pulse 99 Oximetry 02/05/18 02/05/18 02/05/18 12:33 12:34 12:37 Temperature Pulse Rate 106 H 113 H 108 H Respiratory Rate Blood Pressure 155/90 Blood Pressure [Right] O2 Sat by Pulse 100 91 Oximetry 02/05/18 02/05/18 02/05/18 12:38 12:42 12:43 Temperature Pulse Rate 100 H 91 H 98 H Respiratory Rate Blood Pressure 159/85 Blood Pressure [Right] O2 Sat by Pulse 98 99 Oximetry 02/05/18 02/05/18 02/05/18 12:47 12:48 12:52 Temperature Pulse Rate 102 H 104 H 100 H Respiratory Rate Blood Pressure 162/86 165/88 Blood Pressure [Right] O2 Sat by Pulse 100 Oximetry 02/05/18 02/05/18 02/05/18 12:53 12:57 12:58 Temperature Pulse Rate 103 H 100 H 102 H Respiratory Rate Blood Pressure 164/83 Blood Pressure [Right] O2 Sat by Pulse 99 98 Oximetry 10/04/18 10/04/18 10/04/18 13:01 13:03 13:06 Temperature Pulse Rate 96 H 100 H 99 H Respiratory Rate Blood Pressure 164/82 162/81 Blood Pressure [Right] O2 Sat by Pulse 99 Oximetry 02/05/18 02/05/18 02/05/18 13:08 13:13 13:16 Temperature Pulse Rate 98 H 96 H 97 H Respiratory Rate Blood Pressure 175/82 171/81 Blood Pressure [Right] O2 Sat by Pulse 99 99 Oximetry 02/05/18 02/05/18 02/05/18 13:18 13:23 13:28 Temperature Pulse Rate 95 H 99 H 100 H Respiratory Rate Blood Pressure Blood Pressure [Right] O2 Sat by Pulse 100 100 99 Oximetry 02/05/18 02/05/18 02/05/18 13:32 13:33 13:38 Temperature Pulse Rate 96 H 102 H 102 H Respiratory Rate Blood Pressure 145/78 Blood Pressure [Right] O2 Sat by Pulse 98 98 Oximetry 02/05/18 02/05/18 02/05/18 13:43 13:45 13:48 Temperature Pulse Rate 98 H 104 H 101 H Respiratory Rate Blood Pressure 141/75 Blood Pressure [Right] O2 Sat by Pulse 99 99 Oximetry 02/05/18 02/05/18 02/05/18 13:53 13:58 14:00 Temperature Pulse Rate 97 H 101 H 100 H Respiratory Rate Blood Pressure 160/81 Blood Pressure [Right] O2 Sat by Pulse 99 98 Oximetry 02/05/18 02/05/18 02/05/18 14:03 14:08 14:13 Temperature Pulse Rate 106 H 107 H 105 H Respiratory Rate Blood Pressure Blood Pressure [Right] O2 Sat by Pulse 99 96 98 Oximetry 02/05/18 02/05/18 02/05/18 14:15 14:16 14:18 Temperature Pulse Rate 100 H 102 H 99 H Respiratory Rate Blood Pressure 159/87 159/87 Blood Pressure [Right] O2 Sat by Pulse 96 Oximetry 02/05/18 02/05/18 02/05/18 14:25 14:30 14:35 Temperature Pulse Rate 104 H 101 H 99 H Respiratory Rate Blood Pressure 155/82 Blood Pressure [Right] O2 Sat by Pulse 98 98 97 Oximetry 02/05/18 02/05/18 02/05/18 14:40 14:41 14:45 Temperature Pulse Rate 106 H 105 H 109 H Respiratory Rate Blood Pressure 159/87 Blood Pressure [Right] O2 Sat by Pulse 95 91 97 Oximetry 02/05/18 02/05/18 02/05/18 14:50 14:51 14:55 Temperature Pulse Rate 103 H 104 H 101 H Respiratory Rate Blood Pressure Blood Pressure [Right] O2 Sat by Pulse 96 84 96 Oximetry 02/05/18 02/05/18 02/05/18 15:00 15:01 15:05 Temperature Pulse Rate 102 H 102 H 103 H Respiratory Rate Blood Pressure 170/91 Blood Pressure [Right] O2 Sat by Pulse 96 95 Oximetry 02/05/18 02/05/18 02/05/18 15:08 15:10 15:13 Temperature Pulse Rate 95 H 102 H 91 H Respiratory Rate Blood Pressure Blood Pressure [Right] O2 Sat by Pulse 94 96 93 Oximetry 02/05/18 02/05/18 02/05/18 15:15 15:17 15:18 Temperature Pulse Rate 101 H 101 H 100 H Respiratory Rate Blood Pressure 142/86 Blood Pressure [Right] O2 Sat by Pulse 92 94 Oximetry 02/05/18 02/05/18 02/05/18 15:20 15:25 15:28 Temperature Pulse Rate 95 H 89 97 H Respiratory Rate Blood Pressure Blood Pressure [Right] O2 Sat by Pulse 93 92 94 Oximetry 02/05/18 02/05/18 02/05/18 15:30 15:31 15:33 Temperature Pulse Rate 99 H 99 H 98 H Respiratory Rate Blood Pressure 167/94 Blood Pressure [Right] O2 Sat by Pulse 95 94 Oximetry 02/05/18 02/05/18 02/05/18 15:35 15:40 15:45 Temperature Pulse Rate 97 H 90 88 Respiratory Rate Blood Pressure 153/82 Blood Pressure [Right] O2 Sat by Pulse 95 94 93 Oximetry 02/05/18 02/05/18 02/05/18 15:50 15:55 16:00 Temperature 97.9 F Pulse Rate 95 H 93 H 93 H Respiratory 20 Rate Blood Pressure Blood Pressure 135/71 [Right] O2 Sat by Pulse 95 94 94 Oximetry 02/05/18 02/05/18 02/05/18 16:01 16:05 16:10 Temperature Pulse Rate 91 H 85 89 Respiratory Rate Blood Pressure 135/71 Blood Pressure [Right] O2 Sat by Pulse 93 93 Oximetry 02/05/18 02/05/18 02/05/18 16:12 16:15 16:16 Temperature Pulse Rate 81 85 84 Respiratory Rate Blood Pressure 113/59 Blood Pressure [Right] O2 Sat by Pulse 94 90 Oximetry 02/05/18 02/05/18 02/05/18 16:20 16:31 16:35 Temperature Pulse Rate 85 90 98 H Respiratory Rate Blood Pressure 136/71 Blood Pressure [Right] O2 Sat by Pulse 96 100 Oximetry 02/05/18 02/05/18 02/05/18 16:40 16:45 16:46 Temperature Pulse Rate 93 H 91 H 89 Respiratory Rate Blood Pressure 142/75 Blood Pressure [Right] O2 Sat by Pulse 100 100 Oximetry 02/05/18 02/05/18 02/05/18 16:51 16:56 17:01 Temperature Pulse Rate 98 H 96 H 90 Respiratory Rate Blood Pressure 138/77 Blood Pressure [Right] O2 Sat by Pulse 99 100 100 Oximetry 02/05/18 02/05/18 02/05/18 17:06 17:11 17:16 Temperature Pulse Rate 92 H 88 88 Respiratory Rate Blood Pressure 127/65 Blood Pressure [Right] O2 Sat by Pulse 99 99 99 Oximetry 02/05/18 02/05/18 02/05/18 17:21 17:26 17:31 Temperature Pulse Rate 89 94 H 92 H Respiratory Rate Blood Pressure 131/70 Blood Pressure [Right] O2 Sat by Pulse 99 99 96 Oximetry 02/05/18 02/05/18 02/05/18 17:36 17:41 17:46 Temperature Pulse Rate 91 H 95 H 94 H Respiratory Rate Blood Pressure 125/72 Blood Pressure [Right] O2 Sat by Pulse 97 96 99 Oximetry 02/05/18 02/05/18 02/05/18 17:51 17:56 18:01 Temperature Pulse Rate 94 H 94 H 93 H Respiratory Rate Blood Pressure Blood Pressure [Right] O2 Sat by Pulse 99 99 97 Oximetry 02/05/18 02/05/18 02/05/18 18:02 18:06 18:11 Temperature Pulse Rate 90 99 H 97 H Respiratory Rate Blood Pressure 136/78 Blood Pressure [Right] O2 Sat by Pulse 100 98 Oximetry 02/05/18 02/05/18 02/05/18 18:15 18:16 18:21 Temperature Pulse Rate 93 H 91 H 94 H Respiratory Rate Blood Pressure 140/78 Blood Pressure [Right] O2 Sat by Pulse 98 99 Oximetry 02/05/18 02/05/18 02/05/18 18:26 18:30 18:31 Temperature Pulse Rate 92 H 87 91 H Respiratory Rate Blood Pressure 137/80 Blood Pressure [Right] O2 Sat by Pulse 98 98 Oximetry 02/05/18 02/05/18 02/05/18 18:36 18:41 18:45 Temperature Pulse Rate 92 H 94 H 90 Respiratory Rate Blood Pressure 141/79 Blood Pressure [Right] O2 Sat by Pulse 98 98 Oximetry 02/05/18 02/05/18 02/05/18 18:46 18:51 18:56 Temperature Pulse Rate 93 H 93 H 95 H Respiratory Rate Blood Pressure Blood Pressure [Right] O2 Sat by Pulse 98 98 98 Oximetry 02/05/18 02/05/18 02/05/18 19:01 19:06 19:11 Temperature Pulse Rate 98 H 94 H 98 H Respiratory Rate Blood Pressure 139/79 Blood Pressure [Right] O2 Sat by Pulse 97 97 97 Oximetry 02/05/18 02/05/18 02/05/18 19:16 19:21 19:26 Temperature Pulse Rate 101 H 101 H 100 H Respiratory Rate Blood Pressure 144/78 Blood Pressure [Right] O2 Sat by Pulse 97 97 97 Oximetry 02/05/18 02/05/18 02/05/18 19:30 19:31 19:36 Temperature Pulse Rate 91 H 96 H 103 H Respiratory Rate Blood Pressure 142/77 Blood Pressure [Right] O2 Sat by Pulse 97 98 Oximetry 02/05/18 02/05/18 02/05/18 19:37 19:41 19:45 Temperature Pulse Rate 104 H 104 H 99 H Respiratory Rate Blood Pressure 145/79 Blood Pressure [Right] O2 Sat by Pulse 93 98 Oximetry 02/05/18 02/05/18 02/05/18 19:46 19:51 19:56 Temperature Pulse Rate 100 H 102 H 103 H Respiratory Rate Blood Pressure Blood Pressure [Right] O2 Sat by Pulse 98 98 97 Oximetry 02/05/18 02/05/18 02/05/18 20:00 20:01 20:06 Temperature Pulse Rate 101 H 99 H 98 H Respiratory Rate Blood Pressure 149/88 Blood Pressure [Right] O2 Sat by Pulse 98 98 Oximetry 02/05/18 02/05/18 02/05/18 20:11 20:16 20:17 Temperature Pulse Rate 100 H 104 H 99 H Respiratory Rate Blood Pressure 146/92 Blood Pressure [Right] O2 Sat by Pulse 99 98 92 Oximetry 02/05/18 02/05/18 02/05/18 20:21 20:26 20:27 Temperature 97.8 F Pulse Rate 99 H 104 H 107 H Respiratory 20 Rate Blood Pressure Blood Pressure 146/92 [Right] O2 Sat by Pulse 98 98 97 Oximetry 02/05/18 02/05/18 02/05/18 20:31 20:36 20:41 Temperature Pulse Rate 104 H 104 H 102 H Respiratory Rate Blood Pressure 158/89 Blood Pressure [Right] O2 Sat by Pulse 98 98 98 Oximetry 02/05/18 02/05/18 02/05/18 20:46 20:51 20:56 Temperature Pulse Rate 104 H 104 H 101 H Respiratory Rate Blood Pressure 137/77 Blood Pressure [Right] O2 Sat by Pulse 93 98 98 Oximetry 02/05/18 02/05/18 02/05/18 21:00 21:01 21:06 Temperature Pulse Rate 107 H 105 H 105 H Respiratory Rate Blood Pressure 144/84 Blood Pressure [Right] O2 Sat by Pulse 97 98 Oximetry 02/05/18 02/05/18 02/05/18 21:11 21:16 21:18 Temperature Pulse Rate 103 H 103 H 111 H Respiratory Rate Blood Pressure 135/73 Blood Pressure [Right] O2 Sat by Pulse 97 97 94 Oximetry 02/05/18 02/05/18 02/05/18 21:21 21:26 21:31 Temperature Pulse Rate 106 H 104 H 110 H Respiratory Rate Blood Pressure 138/75 Blood Pressure [Right] O2 Sat by Pulse 98 98 98 Oximetry 02/05/18 02/05/18 02/05/18 21:36 21:41 21:46 Temperature Pulse Rate 103 H 104 H 102 H Respiratory Rate Blood Pressure Blood Pressure [Right] O2 Sat by Pulse 98 98 98 Oximetry 02/05/18 02/05/18 02/05/18 21:47 21:50 21:51 Temperature Pulse Rate 100 H 108 H 108 H Respiratory Rate Blood Pressure 139/80 Blood Pressure [Right] O2 Sat by Pulse 94 98 Oximetry 02/05/18 02/05/18 02/05/18 21:56 22:01 22:02 Temperature Pulse Rate 102 H 101 H 101 H Respiratory Rate Blood Pressure 138/81 Blood Pressure [Right] O2 Sat by Pulse 98 98 94 Oximetry 02/05/18 02/05/18 02/05/18 22:06 22:11 22:16 Temperature Pulse Rate 105 H 101 H 107 H Respiratory Rate Blood Pressure 136/76 Blood Pressure [Right] O2 Sat by Pulse 98 98 97 Oximetry 02/05/18 02/05/18 02/05/18 22:21 22:26 22:30 Temperature Pulse Rate 101 H 104 H 105 H Respiratory Rate Blood Pressure 139/80 Blood Pressure [Right] O2 Sat by Pulse 98 98 Oximetry 02/05/18 02/05/18 02/05/18 22:31 22:36 22:41 Temperature Pulse Rate 106 H 102 H 103 H Respiratory Rate Blood Pressure Blood Pressure [Right] O2 Sat by Pulse 98 98 98 Oximetry - Exam Breasts: deferred Cardiovascular: Regular rate Lungs: Normal air movement Abdomen: Present: normal appearance, soft. Absent: distention, tenderness Uterus: Present: normal FHR: auscultation normal Uterine Contraction Monitor Mode: Internal Cervical Dilatation: 7 (bloody show) Cervical Effacement Percentage: 100 station: -1 Uterine Contraction Pattern: Regular Uterine Tone Measurement Phase: Resting Uterine Contraction Intensity: Moderate Extremities: normal Deep Tendon Reflex Grade: Normal +2 - Labs Labs: Abnormal Labs 02/05/18 02/05/18 02/05/18 07:55 07:55 17:38 WBC 13.0 H MCV 75 L MCH 24 L RDW 16.3 H Creatinine 0.4 L Magnesium 4.70 H Lactate Dehydrogenase 203 H Laboratory Results - last 24 hr 02/05/18 02/05/18 02/05/18 07:55 07:55 07:55 WBC 13.0 H RBC 4.47 Hgb 10.7 Hct 33.7 MCV 75 L MCH 24 L MCHC 32 RDW 16.3 H Plt Count 366 Creatinine Estimated GFR Uric Acid Magnesium AST ALT Lactate Dehydrogenase Urine Color Urine Turbidity Urine pH Ur Specific [place] Urine Protein Urine Glucose (UA) Urine Ketones Urine Blood Urine Nitrite Urine Bilirubin Urine Urobilinogen Ur Leukocyte Esterase Urine WBC (Auto) Urine RBC (Auto) U Epithel Cells (Auto) RPR Nonreactive Blood Type O POSITIVE Antibody Screen Negative 02/05/18 02/05/18 02/05/18 07:55 11:40 17:38 WBC RBC Hgb Hct MCV MCH MCHC RDW Plt Count Creatinine 0.4 L Estimated GFR > 60 Uric Acid 5.4 Magnesium 4.70 H AST 23 ALT 27 Lactate Dehydrogenase 203 H Urine Color Straw Urine Turbidity Clear Urine pH 6.0 Ur Specific [place] 1.005 Urine Protein <15 mg/dl Urine Glucose (UA) Neg Urine Ketones Tr Urine Blood Sm Urine Nitrite Neg Urine Bilirubin Neg Urine Urobilinogen < 2.0 Ur Leukocyte Esterase Neg Urine WBC (Auto) < 1.0 Urine RBC (Auto) 2.0 U Epithel Cells (Auto) 1.0 RPR Blood Type Antibody Screen
[2018-02-05] MEDS ORDERED: TUCKS PAD TP PRN (23:37)
[2018-02-05] MEDS ORDERED: LANSINOH TP PRN (23:37)
[2018-02-05] MEDS ORDERED: TORADOL IV PRN (23:37)
[2018-02-05] MEDS ORDERED: DULCOLAX PR PRN (23:37)
[2018-02-05] MEDS ORDERED: TYLENOL PO PRN (23:37)
[2018-02-05] MEDS ORDERED: BENADRYL PO PRN (23:37)
[2018-02-05] MEDS ORDERED: PHENERGAN PO PRN (23:37)
[2018-02-05] MEDS ORDERED: MILK OF MAGNESIA PO PRN (23:37)
[2018-02-05] MEDS ORDERED: SODIUM CHLORIDE FLUSH SYRINGE 10 ML IV NR (23:45)
--- NOTE | 2018-02-06 01:32 | Procedure Note ---
OB Delivery Note - Delivery Date of Delivery: 02/05/18 [employer]: [employer] Estimated blood loss: 300cc - Vaginal Delivery presentation: vertex Delivery position: OA Intrapartum events: labor-<37 weeks, PROM->1hr before delivery Delivery induction: oxytocin Delivery augmentation: pitocin Delivery monitor: internal FHT, internal uterine Route of delivery: Delivery placenta: spontaneous Delivery cord: true knot, 3 umbilical vessels Episiotomy: none Delivery laceration: none Anesthesia: epidural Delivery comments: live born male over intact perineum Baby placed on mom's abdomen NICU arrived Baby to warmer Cord blood obtained Placenta and membrane del complete and intact, 3 vessel cord. Pit IVFs 8/9, EBL 300, Wgt 4-9 Mom and baby remain LDR stable. [place] inplace. MGSO4 to continue @ 2gm/hr X 24 hours. - Infant A at 1 minute: 8 at 5 minutes: 9 Infant Gender: Male (wgt 4-9)
[2018-02-06] MEDS: MOTRIN PO SCH ×3 (01:52→13:33)
[2018-02-06] MEDS ORDERED: MAGNESIUM SULFATE 40GM/1000ML 40 GM/1,000 ML BAG IV SCH (02:00)
[2018-02-06] MEDS: SYNTHROID PO SCH (05:38)
[2018-02-06] MEDS: NORMODYNE PO SCH ×3 (05:48→22:01)
[2018-02-06] MEDS ORDERED: BOOSTRIX IM ONE (06:00)
[2018-02-06] MEDS ORDERED: M-M-R II VACCINE SUB-Q ONE (06:00)
[2018-02-06] MEDS ORDERED: SYNTHROID PO SCH (06:00)
--- NOTE | 2018-02-06 08:43 | Progress Note ---
Assessment and Plan Patient c/o COOPER 11/11 worsening when she sits up and better when she lays down, COOPER not resolved with Tylenol - anesthesia notified and will come eval for spinal COOPER. Lochia scant, fundus firm, b/p 150's/80's since delivery. Magnesium sulfate infusing @ 2gm/hr - will continue x 24h post delivery. Continue labetalol PO for htn. post delivery H&H ordered @ 1130. she is currently bottle feeding baby but would like to breast feed, requested RN to get patient breast pump. Continue pathway and close monitoring of b/p. - Patient Problems (1) Spontaneous vaginal delivery Current Visit: Yes Status: Acute (2) Chronic hypertension during Onset Date: ~02/05/18 Current Visit: Yes Status: Chronic (3) BMI 60.0-69.9, adult Onset Date: ~02/05/18 Current Visit: Yes Status: Chronic Subjective - Subjective Date of service: 02/06/18 Principal diagnosis: day #1 (<12hrs) s/p Patient reports: appetite normal, pain well controlled, no nauseated : doing well, bottle feeding Objective - Vital Signs Latest vital signs: Vital Signs Temp Pulse Resp BP BP Pulse Ox 02/06/18 05:52 20 02/06/18 05:48 98 F 100 H 18 154/82 02/06/18 04:38 102 H 150/86 02/06/18 04:36 20 02/06/18 02:25 98.7 F 104 H 20 162/94 93 02/06/18 00:31 106 H 149/81 02/06/18 00:20 106 H 92 02/06/18 00:15 106 H 146/75 90 02/06/18 00:10 107 H 91 02/06/18 00:05 114 H 91 02/06/18 00:01 103 H 140/72 88 02/06/18 00:00 104 H 91 02/05/18 23:55 109 H 92 02/05/18 23:50 107 H 91 02/05/18 23:39 109 H 89 02/05/18 23:31 108 H 139/84 02/05/18 23:16 113 H 166/95 98 02/05/18 23:11 103 H 98 02/05/18 23:06 103 H 98 02/05/18 23:01 106 H 99 10 23:00 98 H 138/78 18 22:56 101 H 98 10 22:51 102 H 98 02/05/18 22:47 100 H 135/83 02/05/18 22:46 103 H 98 02/05/18 22:41 103 H 98 02/05/18 22:36 102 H 98 02/05/18 22:31 106 H 98 02/05/18 22:30 105 H 139/80 02/05/18 22:26 104 H 98 02/05/18 22:21 101 H 98 02/05/18 22:16 107 H 136/76 97 02/05/18 22:11 101 H 98 02/05/18 22:06 105 H 98 02/05/18 22:02 101 H 138/81 94 02/05/18 22:01 101 H 98 02/05/18 21:56 102 H 98 02/05/18 21:51 108 H 98 02/05/18 21:50 108 H 94 02/05/18 21:47 100 H 139/80 02/05/18 21:46 102 H 98 02/05/18 21:41 104 H 98 02/05/18 21:36 103 H 98 02/05/18 21:31 110 H 138/75 98 02/05/18 21:26 104 H 98 02/05/18 21:21 106 H 98 02/05/18 21:18 111 H 94 02/05/18 21:16 103 H 135/73 97 02/05/18 21:11 103 H 97 02/05/18 21:06 105 H 98 02/05/18 21:01 105 H 97 02/05/18 21:00 107 H 144/84 02/05/18 20:56 101 H 98 18 20:51 104 H 98 02/05/18 20:46 104 H 137/77 93 02/05/18 20:41 102 H 98 02/05/18 20:36 104 H 98 18 20:31 104 H 158/89 98 02/05/18 20:27 97.8 F 107 H 20 146/92 97 02/05/18 20:26 104 H 98 02/05/18 20:21 99 H 98 02/05/18 20:17 99 H 146/92 92 1018 20:16 104 H 98 18 20:11 100 H 99 18 20:06 98 H 98 18 20:01 99 H 98 18 20:00 101 H 149/88 18 19:56 103 H 97 18 19:51 102 H 98 18 19:46 100 H 98 18 19:45 99 H 145/79 18 19:41 104 H 98 18 19:37 104 H 93 18 19:36 103 H 98 18 19:31 96 H 97 02/05/18 19:30 91 H 142/77 02/05/18 19:26 100 H 97 18 19:21 101 H 97 02/05/18 19:16 101 H 144/78 97 02/05/18 19:11 98 H 97 02/05/18 19:06 94 H 97 02/05/18 19:01 98 H 139/79 97 18 18:56 95 H 98 18 18:51 93 H 98 18 18:46 93 H 98 18 18:45 90 141/79 18 18:41 94 H 98 18 18:36 92 H 98 18 18:31 91 H 98 18 18:30 87 137/80 18 18:26 92 H 98 18 18:21 94 H 99 18 18:16 91 H 98 18 18:15 93 H 140/78 18 18:11 97 H 98 18 18:06 99 H 100 18 18:02 90 136/78 1018 18:01 93 H 97 18 17:56 94 H 99 02/05/18 17:51 94 H 99 18 17:46 94 H 125/72 99 10/18 17:41 95 H 96 10/18 17:36 91 H 97 02/05/18 17:31 92 H 131/70 96 10/04/18 17:26 94 H 99 10/04/18 17:21 89 99 02/05/18 17:16 88 127/65 99 02/05/18 17:11 88 99 02/05/18 17:06 92 H 99 02/05/18 17:01 90 138/77 100 02/05/18 16:56 96 H 100 02/05/18 16:51 98 H 99 02/05/18 16:46 89 100 02/05/18 16:45 91 H 142/75 02/05/18 16:40 93 H 100 02/05/18 16:35 98 H 100 02/05/18 16:31 90 136/71 02/05/18 16:20 85 96 02/05/18 16:16 84 113/59 02/05/18 16:15 85 90 02/05/18 16:12 81 94 02/05/18 16:10 89 93 02/05/18 16:05 85 93 02/05/18 16:01 91 H 135/71 02/05/18 16:00 97.9 F 93 H 20 135/71 94 02/05/18 15:55 93 H 94 02/05/18 15:50 95 H 95 02/05/18 15:45 88 153/82 93 02/05/18 15:40 90 94 02/05/18 15:35 97 H 95 02/05/18 15:33 98 H 94 02/05/18 15:31 99 H 167/94 02/05/18 15:30 99 H 95 02/05/18 15:28 97 H 94 02/05/18 15:25 89 92 02/05/18 15:20 95 H 93 02/05/18 15:18 100 H 94 02/05/18 15:17 101 H 142/86 02/05/18 15:15 101 H 92 02/05/18 15:13 91 H 93 02/05/18 15:10 102 H 96 02/05/18 15:08 95 H 94 02/05/18 15:05 103 H 95 02/05/18 15:01 102 H 170/91 02/05/18 15:00 102 H 96 02/05/18 14:55 101 H 96 02/05/18 14:51 104 H 84 02/05/18 14:50 103 H 96 02/05/18 14:45 109 H 159/87 97 02/05/18 14:41 105 H 91 02/05/18 14:40 106 H 95 02/05/18 14:35 99 H 97 02/05/18 14:30 101 H 155/82 98 02/05/18 14:25 104 H 98 02/05/18 14:18 99 H 96 02/05/18 14:16 102 H 159/87 02/05/18 14:15 100 H 159/87 02/05/18 14:13 105 H 98 02/05/18 14:08 107 H 96 02/05/18 14:03 106 H 99 02/05/18 14:00 100 H 160/81 02/05/18 13:58 101 H 98 02/05/18 13:53 97 H 99 02/05/18 13:48 101 H 99 02/05/18 13:45 104 H 141/75 02/05/18 13:43 98 H 99 02/05/18 13:38 102 H 98 02/05/18 13:33 102 H 98 02/05/18 13:32 96 H 145/78 02/05/18 13:28 100 H 99 02/05/18 13:23 99 H 100 02/05/18 13:18 95 H 100 02/05/18 13:16 97 H 171/81 02/05/18 13:13 96 H 175/82 99 02/05/18 13:08 98 H 99 02/05/18 13:06 99 H 162/81 02/05/18 13:03 100 H 99 02/05/18 13:01 96 H 164/82 02/05/18 12:58 102 H 98 02/05/18 12:57 100 H 164/83 02/05/18 12:53 103 H 99 02/05/18 12:52 100 H 165/88 02/05/18 12:48 104 H 100 02/05/18 12:47 102 H 162/86 02/05/18 12:43 98 H 99 02/05/18 12:42 91 H 159/85 02/05/18 12:38 100 H 98 02/05/18 12:37 108 H 155/90 02/05/18 12:34 113 H 91 02/05/18 12:33 106 H 100 02/05/18 12:32 99 H 156/86 10/04/18 12:28 100 H 99 02/05/18 12:27 97 H 154/79 02/05/18 12:23 102 H 99 02/05/18 12:22 97 H 158/86 02/05/18 12:18 96 H 99 02/05/18 12:17 101 H 144/80 02/05/18 12:13 106 H 99 02/05/18 12:12 105 H 138/74 02/05/18 12:08 100 H 99 02/05/18 12:07 104 H 146/77 02/05/18 12:03 95 H 96 02/05/18 12:02 104 H 140/75 02/05/18 11:58 102 H 98 02/05/18 11:57 100 H 142/77 02/05/18 11:53 106 H 97 02/05/18 11:52 103 H 141/78 94 02/05/18 11:48 101 H 97 02/05/18 11:46 107 H 146/80 02/05/18 11:45 102 H 94 02/05/18 11:44 96 H 143/75 02/05/18 11:43 107 H 96 02/05/18 11:42 100 H 135/79 02/05/18 11:40 104 H 132/74 02/05/18 11:39 107 H 93 02/05/18 11:38 107 H 133/69 94 02/05/18 11:36 110 H 138/69 02/05/18 11:34 113 H 137/65 02/05/18 11:33 120 H 95 02/05/18 11:32 110 H 145/74 02/05/18 11:30 115 H 129/62 02/05/18 11:28 112 H 125/60 96 02/05/18 11:26 109 H 142/69 02/05/18 11:24 117 H 143/65 02/05/18 11:23 129 H 98 02/05/18 11:22 112 H 153/64 02/05/18 11:20 111 H 163/77 02/05/18 11:18 113 H 147/71 96 02/05/18 11:17 101 H 184/101 02/05/18 11:14 113 H 94 02/05/18 11:13 108 H 94 02/05/18 11:08 113 H 95 02/05/18 11:05 109 H 94 02/05/18 11:03 112 H 97 02/05/18 11:00 101 H 159/91 02/05/18 10:59 97.8 F 105 H 18 159/91 97 02/05/18 10:58 104 H 153/96 98 02/05/18 10:56 112 H 89 02/05/18 10:53 109 H 96 02/05/18 10:51 102 H 91 02/05/18 10:48 102 H 96 02/05/18 10:45 106 H 149/95 02/05/18 10:43 105 H 97 02/05/18 10:41 110 H 94 02/05/18 10:38 103 H 95 02/05/18 10:33 109 H 97 02/05/18 10:30 104 H 149/84 02/05/18 10:29 102 H 97 02/05/18 10:24 102 H 96 02/05/18 10:19 99 H 96 02/05/18 10:15 100 H 144/82 02/05/18 10:13 105 H 96 02/05/18 10:09 108 H 93 02/05/18 10:04 99 H 95 02/05/18 10:00 96 H 140/80 02/05/18 09:59 99 H 95 02/05/18 09:56 103 H 93 02/05/18 09:55 100 H 137/72 02/05/18 09:54 105 H 96 02/05/18 09:51 105 H 94 02/05/18 09:50 93 H 142/69 02/05/18 09:49 98 H 94 02/05/18 09:45 97 H 137/74 94 02/05/18 09:44 104 H 96 02/05/18 09:40 97 H 142/79 02/05/18 09:39 101 H 95 02/05/18 09:37 100 H 94 02/05/18 09:35 101 H 147/77 02/05/18 09:34 101 H 95 02/05/18 09:31 103 H 94 02/05/18 09:30 101 H 143/74 02/05/18 09:28 101 H 94 02/05/18 09:25 102 H 143/72 94 02/05/18 09:24 109 H 95 02/05/18 09:20 105 H 148/78 02/05/18 09:19 106 H 94 02/05/18 09:15 104 H 150/79 02/05/18 09:14 104 H 94 02/05/18 09:13 101 H 94 02/05/18 09:12 100 H 148/74 94 02/05/18 09:10 100 H 148/74 02/05/18 09:09 104 H 95 02/05/18 09:06 96 H 188/90 94 02/05/18 09:05 96 H 188/90 02/05/18 09:04 115 H 96 02/05/18 09:01 93 H 160/85 91 02/05/18 09:00 93 H 160/85 02/05/18 08:59 98 H 96 02/05/18 08:55 89 93 02/05/18 08:54 97 H 95 02/05/18 08:53 98 H 20 191/102 95 02/05/18 08:51 98 H 191/102 02/05/18 08:47 93 H 180/100 180/100 Intake and Output 02/05/18 02/06/18 02/06/18 23:59 07:59 15:59 Intake Total 883.501 360 Output Total 700 1800 Balance 183.501 -1440 Intake: IV 883.501 AMPICILLIN/NS 1 GM/50 ML 50 1 gm In 50 ml @ 100 mls/ hr IV Q4H [facility] Rx#: [id number] Lactated Ringers 1,000 ml 675 @ 125 mls/hr IV DIRECT [facility] Rx#:[id number] PITOCin/NS 30 UNIT/500ML 158.501 30 units In 500 ml @ 4 MILLIUNITS/MIN 4 mls/hr IV Q30MIN [facility] Rx#: [id number] Oral 360 Output: Urine 700 1800 Indwelling Catheter 700 1800 Other: Total, Intake Amount 360 Total, Output Amount 100 1800 - Exam Breasts: Present: normal Cardiovascular: Present: Regular rate Lungs: Present: Clear to auscultation Abdomen: Present: normal appearance, soft Vulva: both: normal Uterus: Present: normal, firm, fundal height at umbilicus Extremities: Present: normal Deep Tendon Reflex Grade: Normal +2 - Labs Labs: Abnormal lab results 1002/05/18 02/06/18 Range/Units 07:55 17:38 00:15 WBC 13.0 H (4.5-11.0) K/mm3 MCV 75 L (79-97) fl MCH 24 L (28-32) pg RDW 16.3 H (13.2-15.2) % Magnesium 4.70 H 5.60 H (1.7-2.3) mg/dL 02/06/18 Range/Units 04:17 WBC (4.5-11.0) K/mm3 MCV (79-97) fl MCH (28-32) pg RDW (13.2-15.2) % Magnesium 5.50 H (1.7-2.3) mg/dL
[2018-02-06] MEDS ORDERED: LACTATED RINGERS 1,000 ML ONE (13:16)
[2018-02-06] MEDS ORDERED: LACTATED RINGERS 1,000 ML IV SCH (14:00)
[2018-02-06 14:21] LABS: Hematocrit 31.7 % (30.3-42.9); Hemoglobin 10.1 gm/dl (10.1-14.3)
[2018-02-07] MEDS: MOTRIN PO SCH ×2 (00:18→11:50)
[2018-02-07] MEDS: SYNTHROID PO SCH (05:58)
[2018-02-07] MEDS: NORMODYNE PO SCH ×2 (05:58→15:00)
--- NOTE | 2018-02-07 09:00 | Discharge Summary ---
Providers - Providers Date of Admission: 02/05/18 07:21 Date of discharge: 02/07/18 (pt requesting d/c) Attending physician: SARA AMADRO Primary care physician: MUNA MARTÍNEZ Hospitalization Reason for admission: labor, rupture of membranes Delivery: Episiotomy: none Laceration: none Incision: normal Other procedures: none complications: none Discharge diagnosis: delivery baby: male (will call office to [facility] circumcision) Hospital course: uncomplicated vaginal delivery Pt w/o complaint Desires d/c today VSS FF below umb Lochia small Perineum intact H&H stable Doing well s/p vag delivery P: d/c today with instructions RTO Fri/ for BP check. Will virgen circumcision Pt d/c on Labetalol 400mg po TID and Synthroid 150mcg QD Condition at discharge: Good Disposition: DC-01 TO HOME OR SELFCARE - Discharge Diagnoses (1) Hypothyroidism Status: Chronic Qualifiers: Hypothyroidism type: acquired Qualified Code(s): E03.9 - Hypothyroidism, unspecified Comment: continue levothyroxine 150mcg QD (2) Chronic hypertension during Status: Chronic Comment: continue Labetalol 400mg TID (3) Spontaneous vaginal delivery Status: Acute Comment: RTO 1 week BP check Plan - Provider Discharge Summary Activity: routine, no sex for 6 weeks, no heavy lifting 4 weeks, no strenuous exercise Diet: other (NO SALT) Instructions: routine Additional instructions: [] Smoking cessation referral if applicable(refer to patient education folder for contact #) [] Refer to [facility]'s [facility] Booklet Call your doctor immediately for: * Fever > 100.5 * Heavy vaginal bleeding ( >1 pad per hour) * Severe persistent headache * Shortness of breath * Reddened, hot, painful area to leg or breast * Drainage or odor from incision. * Keep incision clean and dry at all times and follow doctor's instructions regarding bathing/showering - Follow up plan Follow up: MUNA MARTÍNEZ MD [Primary Care Provider] - 02/11/18 (Congratulations! Please call [phone] to schedule your blood pressure check Friday or . Be sure to ask about when to schedule your son's circumcision. Call with headache, blurred vision, chest pain. Take medications as prescribed. Motrin for cramping and pain, Tylenol for headaches. Call with any concerns.)
[2018-02-07 17:52] VITALS: BP 131/70
== END 2018-02-07 17:00 | disposition home or self-care (01) | DRG 774 ==
LOC: TRG 07:18 → LD 07:19 → TRG 07:20 → LD 07:21 → OB 02-06 01:28
PROVIDERS: ADMIT Obstetrics & Gynecology; ATTEND Obstetrics & Gynecology
PROC: 10E0XZZ Delivery of Products of Conception, External Approach (ICD-10-PCS; principal; 2018-02-05)
PROC: 10H07YZ Insertion of Other Device into Products of Conception, Via Natural or Artificial Opening (ICD-10-PCS; 2018-02-05)
PROC: 3E0R3BZ Introduction of Anesthetic Agent into Spinal Canal, Percutaneous Approach (ICD-10-PCS; 2018-02-05)
PROC: 00HU33Z Insertion of Infusion Device into Spinal Canal, Percutaneous Approach (ICD-10-PCS; 2018-02-05)
PROC: 3E0234Z Introduction of Serum, Toxoid and Vaccine into Muscle, Percutaneous Approach (ICD-10-PCS; 2018-02-06)
DX: O42.013 Preterm premature rupture of membranes, onset of labor within 24 hours of rupture, third trimester (principal); O10.92 Unspecified pre-existing hypertension complicating childbirth; Z3A.35 35 weeks gestation of pregnancy; Z37.0 Single live birth; O99.284 Endocrine, nutritional and metabolic diseases complicating childbirth; E03.9 Hypothyroidism, unspecified; J45.909 Unspecified asthma, uncomplicated; O99.52 Diseases of the respiratory system complicating childbirth; Z86.73 Personal history of transient ischemic attack (TIA), and cerebral infarction without residual deficits; Z88.6 Allergy status to analgesic agent; Z91.040 Latex allergy status; Z79.899 Other long term (current) drug therapy; O99.214 Obesity complicating childbirth; E66.9 Obesity, unspecified; Z68.44 Body mass index [BMI] 60.0-69.9, adult; O99.02 Anemia complicating childbirth; D64.9 Anemia, unspecified; Z23 Encounter for immunization; O69.1XX0 Labor and delivery complicated by cord around neck, with compression, not applicable or unspecified
CPT/HCPCS: 36415; 76815; 81001; 82565; 83615; 83735; 84450; 84460; 84550; 85014; 85018; 85027; 86592; 86850; 86900; 86901; 88307; J0290; J2590; J3105; J3475; J7120